=== PATIENT | female | born 1975 | race Caucasian/White ===

== ENCOUNTER 2017-06-13 11:39 | Emergency (ER) | payer MEDICAID ==
[~2017-06-13] VITALS: Ht 175.3 cm; Wt 79.0 kg
[~2017-06-13 11:39] MED LIST: OMEP40CA34 PO; TRAM50TA3 PO; VENL-180 PO
[2017-06-13 15:57] VITALS: BP 130/68
[2017-06-13] MEDS ORDERED: HYDROCODONE/ACETAMINOPHEN 5/325MG TABLET PO ONE (17:15)
== END 2017-06-13 18:16 | disposition home or self-care (01) ==
LOC: ER 15:48
DX: M25.571 Pain in right ankle and joints of right foot (principal); M79.671 Pain in right foot; J45.909 Unspecified asthma, uncomplicated; K58.9 Irritable bowel syndrome, unspecified; E78.00 Pure hypercholesterolemia, unspecified; I11.0 Hypertensive heart disease with heart failure; M54.30 Sciatica, unspecified side; Z98.890 Other specified postprocedural states; X50.1XXA Overexertion from prolonged static or awkward postures, initial encounter; Y93.89 Activity, other specified; Y92.099 Unspecified place in other non-institutional residence as the place of occurrence of the external cause
CPT/HCPCS: 73610; 73630; 99284

== ENCOUNTER 2018-08-18 13:02 | Emergency (ER) | payer MEDICAID ==
[~2018-08-18] VITALS: Ht 175.3 cm; Wt 91.0 kg
[2018-08-18] MEDS ORDERED: HYDROCODONE/ACETAMINOPHEN 5/325MG TABLET PO ONE (17:45)
[2018-08-18 20:17] VITALS: BP 138/83
== END 2018-08-18 20:19 | disposition home or self-care (01) ==
LOC: ER 13:02
DX: M54.2 Cervicalgia (principal); M25.571 Pain in right ankle and joints of right foot; M25.562 Pain in left knee; F15.10 Other stimulant abuse, uncomplicated; J45.909 Unspecified asthma, uncomplicated; I10 Essential (primary) hypertension; Z98.890 Other specified postprocedural states
CPT/HCPCS: 72040; 73610; 73630; 99284